=== PATIENT | female | born 2000 | race Caucasian/White ===

== ENCOUNTER 2018-12-14 13:51 | Emergency (ER) | payer OTHER ==
[~2018-12-14] VITALS: Ht 149.9 cm; Wt 60.3 kg
[~2018-12-14 13:51] MED LIST: PREN-385 PO
[2018-12-14 14:02] VITALS: BP 119/69
--- NOTE | 2018-12-14 14:10 | NUR ---
PATIENT AMBULATED TO ER BED 10
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
[2018-12-14] MEDS ORDERED: KETOROLAC 60 MG/2 ML VIAL IM ONE (14:35)
[2018-12-14 15:00] VITALS: BP 122/79
--- NOTE | 2018-12-14 15:00 | NUR ---
Patient discharged with v/s stable. Written and verbal after care instructions given and explained. Patient alert, oriented and verbalized understanding of instructions. Ambulatory with steady gait. All questions addressed prior to discharge. ID band removed. Patient advised to follow up with PMD. Rx of NORCO, MOTRIN given. Patient educated on indication of medication including possible reaction and side effects. Opportunity to ask questions provided and answered.
== END 2018-12-14 15:00 | disposition home or self-care (01) ==
LOC: MED 13:51
DX: M25.512 Pain in left shoulder (principal); Z79.899 Other long term (current) drug therapy; V89.2XXA Person injured in unspecified motor-vehicle accident, traffic, initial encounter; Y93.89 Activity, other specified; Y92.488 Other paved roadways as the place of occurrence of the external cause; Y99.8 Other external cause status
CPT/HCPCS: 96372; 99283; J1885